=== PATIENT | male | born 1970 | race Hispanic/Latino ===

== ENCOUNTER 2018-08-11 17:13 | Observation (INO) | payer MEDICAID ==
[2018-08-11 18:48] LABS: BASO % 0.4 % (0.0-2.0); EOS # 0.1 K/uL (0.0-0.7); EOS % 2.2 % (0.0-4.0); HEMOGLOBIN 12.3 g/dL (12.0-18.0); LYMPH # 2.3 K/uL (1.0-4.3); LYMPH % 36.1 % (20.0-40.0); MEAN CELL VOLUME 85.7 fl (80.0-94.0); MEAN CORPUSCULAR HEMOGLOBIN 28.2 pg (27.0-31.0); MEAN CORPUSCULAR HGB CONC 32.9 g/dL (33.0-37.0); MEAN PLATELET VOLUME 10.2 fl (7.2-11.7); MONO # 0.5 K/uL (0.0-0.8); NEUT # 3.4 K/uL (1.8-7.0); NEUT % 53.3 % (50.0-75.0); NRBC % 0.2 % (0.0-0.0); RBC 4.38 Mil/uL (4.40-5.90); RED CELL DISTRIBUTION WIDTH 13.5 % (11.5-14.5); WHITE BLOOD COUNT 6.4 K/uL (4.8-10.8)
--- NOTE | 2018-08-11 18:48 | RAD ---
HISTORY: cough COMPARISON: None available. TECHNIQUE: Chest PA and lateral, 2 views FINDINGS: LUNGS: No focal consolidation. Please note that chest x-ray has limited sensitivity for the detection of pulmonary masses. PLEURA: No significant pleural effusion identified. No definite pneumothorax . CARDIOVASCULAR: Heart size appears within normal limits. No atherosclerotic calcification present. OSSEOUS STRUCTURES: No acute osseous abnormality identified. VISUALIZED UPPER ABDOMEN: Unremarkable. OTHER FINDINGS: None. IMPRESSION: No focal consolidation.
[2018-08-11 18:49] LABS: PROTHROMBIN TIME 11.4 Seconds (9.8-13.1)
[2018-08-11 18:52] LABS: PARTIAL THROMBOPLASTIN TIME 29.6 Seconds (25.6-37.1)
[2018-08-11 18:58] LABS: ALB/GLOB RATIO 1.6 (1.0-2.1); ALT/SGPT 51 U/L (21-72); AST/SGOT 39 U/L (17-59); BLOOD UREA NITROGEN 17 mg/dl (9-20); CALCIUM 9.7 mg/dL (8.4-10.2); GFR NON-AFRICAN AMERICAN > 60
[2018-08-11 19:01] LABS: URINE BACTERIA RARE (<OCC); URINE BILIRUBIN NEGATIVE (NEGATIVE); URINE BLOOD NEGATIVE (NEGATIVE); URINE COLOR YELLOW (YELLOW); URINE GLUCOSE (UA) NEG (NEGATIVE); URINE LEUKOCYTE ESTERASE NEG Leu/uL (Negative); URINE PROTEIN NEGATIVE (NEGATIVE); URINE UROBILINOGEN 0.2-1.0 mg/dL (0.2-1.0)
[2018-08-11 19:02] LABS: URINE CLARITY CLEAR (Clear)
[2018-08-11 19:09] LABS: B-TYPE NATRIURETIC PEPTIDE 357 pg/ml (0-450)
[2018-08-11] MEDS ORDERED: Sodium Chloride 0.9% 100 ML ONE (19:10)
[2018-08-11] MEDS ORDERED: Iodixanol 320 MG/ML 100 ML BOTTLE IV ONE (19:10)
--- NOTE | 2018-08-11 19:59 | ED PDOC ---
HPI: Chest Pain Time Seen by Provider: 08/11/18 18:10 Chief Complaint (Nursing): Palpitations Chief Complaint (Provider): Palpitations History Per: Patient History/Exam Limitations: no limitations Onset/Duration Of Symptoms: Days (x3 months ) Additional Complaint(s): Patient is a 47 year old male with no past medical history, who presents to the emergency department complaining of weight loss and intermittent palpitations. He was diagnosed with a DVT and PE last January and was on anticoagulants. However, he stopped taking them in April because they made him shake and weak. Patient has not followed up with PMD or any other doctor. He is accompanied to ED by female friend who made him come to the ED. PMD: Siri Wick Past Medical History Reviewed: Historical Data, Nursing Documentation, Vital Signs Vital Signs: Last Vital Signs Temp 98.2 F 08/11/18 17:49 Pulse 126 H 08/11/18 18:16 Resp 16 08/11/18 17:49 BP 135/85 08/11/18 17:49 Pulse Ox 97 08/11/18 17:49 - Medical History PMH: Deep Vein Thrombosis, Pulmonary Embolism Denies: Chronic Kidney Disease - Surgical History Surgical History: Tonsillectomy - Family History Family History: States: Unknown Family Hx - Home Medications Home Medications: Ambulatory Orders Medication Instructions Recorded No Known Home Med 01/26/18 - Allergies Allergies/Adverse Reactions: Allergies Allergy/AdvReac Type Severity Reaction Status Date / Time Penicillins Allergy Verified 01/25/18 19:00 Review of Systems ROS Statement: Except As Marked, All Systems Reviewed And Found Negative Constitutional: Positive for: Weight loss Cardiovascular: Positive for: Palpitations Physical Exam - Reviewed Nursing Documentation Reviewed: Yes Vital Signs Reviewed: Yes - Physical Exam Appears: Positive for: Non-toxic, No Acute Distress (visibly thin) Skin: Positive for: Jaundice Cardiovascular/Chest: Positive for: Tachycardia (regular rate) Respiratory: Positive for: Normal Breath Sounds. Negative for: Respiratory Distress Gastrointestinal/Abdominal: Positive for: Normal Exam, Soft. Negative for: Tenderness Back: Positive for: Normal Inspection. Negative for: L CVA Tenderness, R CVA Tenderness, Vertebral Tenderness Extremity: Negative for: Calf Tenderness (on squeeze and no pain), Swelling Neurological/Psych: Positive for: Awake, Oriented - Laboratory Results Result Diagrams: 08/11/18 18:18 08/11/18 18:18 Lab Results: PT 11.4 Seconds (9.8-13.1) 08/11/18 18:18 INR 1.0 08/11/18 18:18 APTT 29.6 Seconds (25.6-37.1) 08/11/18 18:18 Troponin I < 0.0120 ng/mL (0.00-0.120) 08/11/18 18:18 NT-Pro-B Natriuret Pep 357 pg/ml (0-450) 08/11/18 18:18 Total Bilirubin 0.4 mg/dl (0.2-1.3) 08/11/18 18:18 AST 39 U/L (17-59) 08/11/18 18:18 ALT 51 U/L (21-72) 08/11/18 18:18 Alkaline Phosphatase 128 U/L (38-126) H D 08/11/18 18:18 Total Protein 6.6 G/DL (6.3-8.2) 08/11/18 18:18 Albumin 4.0 g/dL (3.5-5.0) 08/11/18 18:18 Globulin 2.6 gm/dL (2.2-3.9) 08/11/18 18:18 Albumin/Globulin Ratio 1.6 (1.0-2.1) 08/11/18 18:18 Urine Color Yellow (YELLOW) 08/11/18 18:46 Urine Clarity Clear (Clear) 08/11/18 18:46 Urine pH 6.0 (5.0-8.0) 08/11/18 18:46 Ur Specific [place] 1.018 (1.003-1.030) 08/11/18 18:46 Urine Protein Negative mg/dL (NEGATIVE) 08/11/18 18:46 Urine Glucose (UA) Neg mg/dL (NEGATIVE) 08/11/18 18:46 Urine Ketones Negative mg/dL (NEGATIVE) 08/11/18 18:46 Urine Blood Negative (NEGATIVE) 08/11/18 18:46 Urine Nitrate Negative (NEGATIVE) 08/11/18 18:46 Urine Bilirubin Negative (NEGATIVE) 08/11/18 18:46 Urine Urobilinogen 0.2-1.0 mg/dL (0.2-1.0) 08/11/18 18:46 Ur Leukocyte Esterase Neg Donny/uL (Negative) 08/11/18 18:46 Urine RBC (Auto) 1 /hpf (0-3) 08/11/18 18:46 Urine Microscopic WBC 1 /hpf (0-5) 08/11/18 18:46 Urine Bacteria Rare (<OCC) 08/11/18 18:46 - ECG O2 Sat by Pulse Oximetry: 97 (RA) Pulse Ox Interpretation: Normal Medical Decision Making Medical Decision Making: Time: 1758 A/P: Work up for unintentional weight loss with history of DVT and tachycardia, T wave inversion on EKG. Order CT chest to rule out PE. Will order IV fluids and reassess patient. Perform Cardiac work up. --Type and screen --VBG --CTA --EKG --BNP --CMP --Troponin I --EKG --CBC with differential --PTT --PT --Chest xray --Blood culture --Urinalysis Time: 1844 Chest xray FINDINGS: LUNGS: No focal consolidation. Please note that chest x-ray has limited sensitivity for the detection of pulmonary masses. PLEURA: No significant pleural effusion identified. No definite pneumothorax . CARDIOVASCULAR: Heart size appears within normal limits. No atherosclerotic calcification present. OSSEOUS STRUCTURES: No acute osseous abnormality identified. VISUALIZED UPPER ABDOMEN: Unremarkable. OTHER FINDINGS: None. IMPRESSION: No focal consolidation. Time: 1946 CT FINDINGS: PULMONARY ARTERIES No evidence of central or segmental pulmonary embolism is seen. AORTA There is no evidence for aneurysm or dissection of the thoracic aorta. LUNGS The lungs appear clear. PLEURAL SPACES No pleural effusion seen. No pneumothorax evident. HEART Normal heart size. No significant pericardial effusion. LYMPH NODES No lymphadenopathy is evident. BONES No focal osseous abnormality or acute fracture. UPPER ABDOMEN Images of the upper abdomen are unremarkable. IMPRESSION: Unremarkable pulmonary embolism protocol CTA of the chest. Time: 2253 --Patient labs show elevated thyroid levels. --Patient to be admitted to medicine. --Initiated hyperthyroid treatment now. ----- Scribe Attestation: Documented by Mahendra Marmolejo, acting as a scribe Nikolas Borja MD. Provider Scribe Attestation: All medical record entries made by the Scribe were at my direction and pers onally dictated by me. I have reviewed the chart and agree that the record accurately reflects my personal performance of the history, physical exam, medical decision making, and the department course for this patient. I have also personally directed, reviewed, and agree with the discharge instructions and disposition. [address] chest shows no abnormalities. Pt remains tachycardic after one liter of IV fluids. Sending Thyroid panel and HIV screen now. Adding on a second liter of IV fluids and pt given Nicotine patch per request. 2255 T4 of 22. Initiating treatment of Thyroid storm with Esmolol and Methimazol. Spoke with hospitalist and FP resident. PT to be admitted to Telemetry. Disposition - Clinical Impression Clinical Impression: Hyperthyroidism - Patient ED Disposition Is Patient to be Admitted: Yes - Disposition Disposition Time: 22:55 Condition: GUARDED
[2018-08-11] MEDS ORDERED: Sodium Chloride 0.9% 1,000 ML IV STA ×2 (20:49→21:57)
[2018-08-11 21:06] LABS: VENOUS BLOOD GAS BASE EXCESS 4.7 mmol/L (0.0-2.0); VENOUS BLOOD GAS PCO2 51 mmHg (40-60); VENOUS BLOOD GAS PO2 31 mm/Hg (30-55); VENOUS BLOOD PH 7.39 (7.32-7.43)
[2018-08-11 21:33] LABS: BARBITURATES, UR NEGATIVE (NEGATIVE); BENZODIAZEPINES, UR NEGATIVE (NEGATIVE); OPIATES, UR NEGATIVE (NEGATIVE); PHENCYCLIDINE, UR NEGATIVE (NEGATIVE)
[2018-08-11 22:59] LABS: T3 4.61 nmol/L (1.49-2.60)
[2018-08-11] MEDS ORDERED: Esmolol 100 mg/10ml Inj IV ONE (23:01)
--- NOTE | 2018-08-11 23:56 | CP.PCM.HP ---
History of Present Illness - History of Present Illness History of Present Illness: This is 47 y/o M with PMH of Unprovoked DVT/PE in 01/2018 (Stopped taking Eliquis after 3mts) admitted to [facility] for evaluation and treatment of hyperthyroid/Thyrotoxicosis. Patient presents to the ER c/o 6 months hx of 35 pounds of unintentional weight loss, intermittent episodes of palpitations, tachycardia, tremulousness, anxiety, frequent bowel movements, sweating and heat intolerance. Patient reports good appetite, Stopped taking his Eliquis after 3 months due to side effect/shaking. Denies any dizziness, blurred vision, skin c hanges, SOB, chest pain, abdominal pain or dysuria. PMH: Unprovoked DVT/PE in 01/2018 PSH: [place] Allg: PCN, unable to recall sideeffects Meds: Aspirin SH: Smoker almost 2 packs/day, 2-3 beers/day and social marijuana use FH: + Hypothyroid ROS: As per HPI ER Course: HR 126, 98.2F, RR 16, Spo2 97, 135/85 CBC/CMP/UA: WNL HIV negative Urine tox: + Marijuana TSH <0.02, T4 22.5, T3 4.61 EKG: tachycardia CXR: negative CT chest angio: Normal, f/u official read S/P Esmolol 20mg, 2L IVF, Methimazole 20mg STAT Present on Admission - Present on Admission Any Indicators Present on Admission: No Review of Systems - Constitutional Constitutional: Excessive Sweating, Fatigue, Increased Appetite, Weight Loss. absent: Headache, Lethargy - EENT Eyes: absent: Blurred Vision Ears: absent: Dizziness Nose/Mouth/Throat: absent: Nasal Congestion, Sinus Pressure, Mouth Pain, Sore Throat, Throat Swelling, Tongue Swelling, Neck Pain, Neck Mass - Cardiovascular Cardiovascular: Palpitations, Rapid Heart Rate. absent: Chest Pain, Dyspnea, Dyspnea on Exertion - Respiratory Respiratory: absent: Cough, Dyspnea, Hemoptysis, Wheezing - Gastrointestinal Gastrointestinal: absent: Abdominal Pain - Genitourinary Genitourinary: absent: Change in Urinary Stream - Musculoskeletal Musculoskeletal: absent: Abnormal Gait, Muscle Cramps, Muscle Weakness, Neck Pain, Numbness, Stiffness, Tingling - Integumentary Integumentary: absent: Dry Skin, Rash - Neurological Neurological: absent: Dizziness, Numbness, Focal Weakness, Loss of Vision, Sensory Deficit, Syncope, Tingling, Tremor, Vertigo, Weakness, Other Visual Disturbances - Psychiatric Psychiatric: Anxiety. absent: Depression - Endocrine Endocrine: Excessive Sweating, Fatigue, Heat Intolorance, Palpitations. absent: Polydipsia, Polyphagia, Polyuria - Hematologic/Lymphatic Hematologic: absent: Easy Bleeding Past Patient History - Past Medical History & Family History Past Medical History?: Yes - Past Social History Smoking Status: Heavy Smoker > 10 Cigarettes Daily - CARDIAC Hx Cardiac Disorders: Yes - PULMONARY Hx Pulmonary Embolism: Yes - NEUROLOGICAL Hx Neurological Disorder: No - HEENT Hx HEENT Problems: No - RENAL Hx Chronic Kidney Disease: No - ENDOCRINE/METABOLIC Hx Endocrine Disorders: Yes - HEMATOLOGICAL/ONCOLOGICAL Hx Blood Disorders: No - INTEGUMENTARY Hx Dermatological Problems: No - MUSCULOSKELETAL/RHEUMATOLOGICAL Hx Musculoskeletal Disorders: No Hx Falls: No - GASTROINTESTINAL Hx Gastrointestinal Disorders: No - GENITOURINARY/GYNECOLOGICAL Hx Genitourinary Disorders: No - PSYCHIATRIC Hx Psychophysiologic Disorder: Yes Hx Substance Use: Yes (marijuanna daily) Other/Comment: ETOH daily 4-6 beers - SURGICAL HISTORY Hx Tonsillectomy: Yes - ANESTHESIA Hx Anesthesia: Yes Hx Anesthesia Reactions: No Hx Malignant Hyperthermia: No Meds Allergies/Adverse Reactions: Allergies Allergy/AdvReac Type Severity Reaction Status Date / Time Penicillins Allergy Verified 01/25/18 19:00 Physical Exam - Constitutional Appears: No Acute Distress (pacing around) - Head Exam Head Exam: ATRAUMATIC, NORMAL INSPECTION, NORMOCEPHALIC - Eye Exam Eye Exam: EOMI, Normal appearance, PERRL Pupil Exam: NORMAL ACCOMODATION, PERRL Additional comments: No Proptosis or periorbital edema No hyperreflexia - ENT Exam ENT Exam: Mucous Membranes Moist - Neck Exam Neck exam: Positive for: Normal Inspection - Respiratory Exam Respiratory Exam: Clear to Auscultation Bilateral, NORMAL BREATHING PATTERN. absent: Rhonchi, Wheezes, Respiratory Distress - Cardiovascular Exam Cardiovascular Exam: Tachycardia, REGULAR RHYTHM, +S1, +S2 - GI/Abdominal Exam GI & Abdominal Exam: Normal Bowel Sounds, Soft. absent: Rigid, Tenderness - Extremities Exam Extremities exam: Positive for: normal capillary refill, normal inspection, pedal pulses present. Negative for: calf tenderness, tenderness Additional comments: trace b/l pedal edema - Back Exam Back exam: NORMAL INSPECTION. absent: CVA tenderness (L), CVA tenderness (R) - Neurological Exam Neurological exam: Alert, CN II-XII Intact, Normal Gait, Oriented x3, Reflexes Normal - Psychiatric Exam Psychiatric exam: Anxious - Skin Skin Exam: Dry, Intact, Normal Color, Warm Results - Vital Signs Recent Vital Signs: Last Vital Signs Temp 98.4 F 08/11/18 23:46 Pulse 115 H 08/11/18 23:46 Resp 19 08/11/18 23:46 BP 135/77 08/11/18 23:46 Pulse Ox 100 08/11/18 23:26 - Labs Result Diagrams: 08/11/18 18:18 08/11/18 18:18 Labs: Laboratory Results - last 24 hr 08/11/18 08/11/18 08/11/18 18:18 18:18 18:18 WBC 6.4 RBC 4.38 L Hgb 12.3 Hct 37.5 MCV 85.7 MCH 28.2 MCHC 32.9 L RDW 13.5 Plt Count 170 MPV 10.2 Neut % (Auto) 53.3 Lymph % (Auto) 36.1 [place] % (Auto) 8.0 Eos % (Auto) 2.2 Baso % (Auto) 0.4 Neut # (Auto) 3.4 Lymph # (Auto) 2.3 [place] # (Auto) 0.5 Eos # (Auto) 0.1 Baso # (Auto) 0.0 PT INR APTT pO2 VBG pH VBG pCO2 VBG HCO3 VBG Total CO2 VBG O2 Sat (Calc) VBG Base Excess VBG Potassium Glucose Lactate FiO2 Sodium 137 Potassium 4.1 Chloride 102 Carbon Dioxide 27 Anion Gap 12 BUN 17 Creatinine 0.4 L Est GFR ( Amer) > 60 Est GFR (Non-Af Amer) > 60 Random Glucose 110 Calcium 9.7 Total Bilirubin 0.4 AST 39 ALT 51 Alkaline Phosphatase 128 H D Troponin I < 0.0120 NT-Pro-B Natriuret Pep 357 Total Protein 6.6 Albumin 4.0 Globulin 2.6 Albumin/Globulin Ratio 1.6 Thyroxine (T4) Total T3 TSH 3rd Generation Venous Blood Potassium Urine Color Urine Clarity Urine pH Ur Specific [place] Urine Protein Urine Glucose (UA) Urine Ketones Urine Blood Urine Nitrate Urine Bilirubin Urine Urobilinogen Ur Leukocyte Esterase Urine RBC (Auto) Urine Microscopic WBC Urine Bacteria Urine Opiates Screen Urine Methadone Screen Ur Barbiturates Screen Ur Phencyclidine Scrn Ur Amphetamines Screen U Benzodiazepines Scrn U Oth Cocaine Metabols U Cannabinoids Screen HIV-1 Ab Rapid Screen Blood Type O POSITIVE Antibody Screen Negative BBK History Checked No verified bt 08/11/18 08/11/18 08/11/18 18:18 18:46 20:50 WBC RBC Hgb Hct MCV MCH MCHC RDW Plt Count MPV Neut % (Auto) Lymph % (Auto) [place] % (Auto) Eos % (Auto) Baso % (Auto) Neut # (Auto) Lymph # (Auto) [place] # (Auto) Eos # (Auto) Baso # (Auto) PT 11.4 INR 1.0 APTT 29.6 pO2 31 VBG pH 7.39 VBG pCO2 51 VBG HCO3 27.5 VBG Total CO2 32.5 H VBG O2 Sat (Calc) 61.6 VBG Base Excess 4.7 H VBG Potassium 4.1 Glucose 101 Lactate 2.0 FiO2 21.0 Sodium 138.0 Potassium Chloride 103.0 Carbon Dioxide Anion Gap BUN Creatinine Est GFR ( Amer) Est GFR (Non-Af Amer) Random Glucose Calcium Total Bilirubin AST ALT Alkaline Phosphatase Troponin I NT-Pro-B Natriuret Pep Total Protein Albumin Globulin Albumin/Globulin Ratio Thyroxine (T4) Total T3 TSH 3rd Generation Venous Blood Potassium 4.1 Urine Color Yellow Urine Clarity Clear Urine pH 6.0 Ur Specific [place] 1.018 Urine Protein Negative Urine Glucose (UA) Neg Urine Ketones Negative Urine Blood Negative Urine Nitrate Negative Urine Bilirubin Negative Urine Urobilinogen 0.2-1.0 Ur Leukocyte Esterase Neg Urine RBC (Auto) 1 Urine Microscopic WBC 1 Urine Bacteria Rare Urine Opiates Screen Urine Methadone Screen Ur Barbiturates Screen Ur Phencyclidine Scrn Ur Amphetamines Screen U Benzodiazepines Scrn U Oth Cocaine Metabols U Cannabinoids Screen HIV-1 Ab Rapid Screen Blood Type Antibody Screen BBK History Checked 08/11/18 08/11/18 08/11/18 21:01 22:12 22:12 WBC RBC Hgb Hct MCV MCH MCHC RDW Plt Count MPV Neut % (Auto) Lymph % (Auto) [place] % (Auto) Eos % (Auto) Baso % (Auto) Neut # (Auto) Lymph # (Auto) [place] # (Auto) Eos # (Auto) Baso # (Auto) PT INR APTT pO2 VBG pH VBG pCO2 VBG HCO3 VBG Total CO2 VBG O2 Sat (Calc) VBG Base Excess VBG Potassium Glucose Lactate FiO2 Sodium Potassium Chloride Carbon Dioxide Anion Gap BUN Creatinine Est GFR ( Amer) Est GFR (Non-Af Amer) Random Glucose Calcium Total Bilirubin AST ALT Alkaline Phosphatase Troponin I NT-Pro-B Natriuret Pep Total Protein Albumin Globulin Albumin/Globulin Ratio Thyroxine (T4) 22.5 H Total T3 4.61 H TSH 3rd Generation < 0.02 L Venous Blood Potassium Urine Color Urine Clarity Urine pH Ur Specific [place] Urine Protein Urine Glucose (UA) Urine Ketones Urine Blood Urine Nitrate Urine Bilirubin Urine Urobilinogen Ur Leukocyte Esterase Urine RBC (Auto) Urine Microscopic WBC Urine Bacteria Urine Opiates Screen Negative Urine Methadone Screen Negative Ur Barbiturates Screen Negative Ur Phencyclidine Scrn Negative Ur Amphetamines Screen Negative U Benzodiazepines Scrn Negative U Oth Cocaine Metabols Negative U Cannabinoids Screen Positive H HIV-1 Ab Rapid Screen Non reactive Blood Type Antibody Screen BBK History Checked Assessment & Plan - Assessment and Plan (Free Text) Assessment: A/P: 47 y/o M with PMH of Unprovoked DVT/PE in 01/2018 (Stopped taking Eliquis after 3mts) admitted to [facility] for evaluation and treatment of hyperthyroid/Thyrotoxicosis. Hyperthyroid/Thyrotoxicosis - TSH <0.02, T4 22.5, T3 4.61 - Consult Endocrine, Dr. Sharma, f/u recommendations - START Atenolol 50mg PO daily, titrate up as needed - START Methimazole 20mg PO TID (as per Dr. Sharma) - F/u Tyroid U/S - F/u Thyroid Abs workup Unprovoked DVT/PE in 01/2018 - Patient stopped taking his Eliquis after 3 months b/c it made him shaky/lose weight - Consult HemOnc, Dr. Vivar to evaluate possible need of anticoags, f/u recommendations - C/w Lovenox 40mg SC daily for now Daily Tobacco Use and Alcohol Use - Nicoderm Patches daily - [facility] protocol - Monitor for any withdrawal symptoms DVT PPX - Lovenox 40mg SC daily Case discussed and Patient seen with Dr. Escobar
[2018-08-11] MEDS ORDERED: Enoxaparin 40 mg Syringe SC STA (23:58)
[2018-08-12] MEDS: Lactated Ringer's 1,000 ML IV SCH ×2 (01:08→11:41)
[2018-08-12 05:03] VITALS: RESP 18
--- NOTE | 2018-08-12 05:17 | CON ---
DATE: 08/12/2018 LOCATION: Room 416. HISTORY OF PRESENT ILLNESS: This is a 47-year-old male with recent onset of palpitations and precordial chest pain with generalized body weakness, was seen in the emergency room and was found to have also sinus tachycardia, evaluated to have new onset of hyperthyroidism and is being referred now for endocrine evaluation and management. PAST MEDICAL HISTORY: History of deep vein thrombosis and pulmonary embolism in 01/22/2018 and was previously on oral anticoagulation therapy which eventually discontinued and was lost for medical followup. FAMILY HISTORY: Positive for hypertension and heart disease. No known thyroid endocrinopathy. SOCIAL HISTORY: The patient admits to polysubstance use with nicotine dependence and smokes over a pack a day for many years, now with chronic alcoholism and also daily marijuana use. REVIEW OF SYSTEMS: Admits to generalized body weakness with progressive bouts of dizziness and lightheadedness and bifrontal headaches. Also admits to easy fatigability and tiredness with marked insomnia and disrupted sleep patterns. Also admits to instability of his moods with marked irritability and agitation, worse in the last few weeks prior to admission. Admits also to recent precordial chest pain with intermittent bouts of palpitations and shortness of breath, especially on exertion. His oral intake has been variable with nausea, dyspepsia, and hyperdefecation. Also admits to recent weight loss of over 10 pounds or more so. PHYSICAL EXAMINATION: GENERAL: An male in no apparent distress. VITAL SIGNS: Blood pressure of 140/90, pulse of 130 beats per minute and regular, temperature 98, respirations 20. Height is 5 feet 2 inches. Weight is 104 pounds. HEENT: Head normocephalic. Eyes anicteric with pink conjunctivae. Funduscopy not possible at this time. Ears, nose, and throat otherwise normal. NECK: Supple. Thyroid gland shows nodular thyromegaly which is firm and nontender with positive thyroid bruits. HEART: Chest shows hyperdynamic precordium. S1, S2 rapid and regular. LUNGS: Clear to auscultation. ABDOMEN: Flat, soft with positive bowel sounds. EXTREMITIES: No peripheral edema. Pulses are +2 bilaterally. LABORATORY DATA: His chemistry showed T4 or thyroxine level of 22.5 with a TSH of less than 0.02 and a total T3 of 4.61. BUN of 17, sodium 137, potassium 4.1, chloride 102, CO2 of 27, glucose 110, and creatinine 0.4. ASSESSMENT: This is a 47-year-old male with overt thyrotoxicosis, presenting here with marked hyperthyroidism noted both historically, clinically and biochemically, most likely related to underlying Graves disease with a concomitant diffuse toxic goiter. He also has overt constitutional and hyperadrenergic manifestations of marked hyperthyroidism, as mentioned. PLAN OF MANAGEMENT: We will initiate maximum thyroid pharmacotherapy at this time with Tapazole to be given at 20 mg p.o. t.i.d. as ordered. We will obtain a comprehensive thyroid hormone profile with a total and free T4 and TSH as ordered. We will also add thyroid stimulating immunoglobulin and thyroid peroxidase antibody to confirm and/or indicate the presence of underlying thyroid autoimmunity. We will obtain a thyroid ultrasound to fully delineate his thyroid lobe dimensions. We will hold off a thyroid scan and uptake, as this will require the discontinuation of his Tapazole therapy, which at this point is imperative and mandatory management to control his hyperadrenergic manifestations. We will also discuss the therapeutic options of medical therapy and radioactive iodine therapy at this time. We will follow and advise accordingly. Sofia Sharma MD
[2018-08-12 06:24] LABS: ALB/GLOB RATIO 1.4 (1.0-2.1); ALBUMIN 3.1 g/dL (3.5-5.0); ALT/SGPT 57 U/L (21-72); AST/SGOT 54 U/L (17-59); BLOOD UREA NITROGEN 13 mg/dl (9-20); CALCIUM 9.7 mg/dL (8.4-10.2); GFR NON-AFRICAN AMERICAN > 60
[2018-08-12] MEDS ORDERED: Enoxaparin 40 mg Syringe SC SCH (09:00)
--- NOTE | 2018-08-12 09:09 | CT ---
Date of service: 08/11/2018 PROCEDURE: CT Chest with contrast (Pulmonary Angiogram) HISTORY: tachycardia, previous PE COMPARISON: None available. TECHNIQUE: Axial computed tomography images were obtained of the chest in the pulmonary arterial phase of enhancement. Coronal and sagittal reformatted images were created and reviewed. Intravenous contrast dose: 65 mL of Visipaque 320 Radiation dose: Total exam DLP = 224.46 mGy-cm. This CT exam was performed using one or more of the following dose reduction techniques: Automated exposure control, adjustment of the mA and/or kV according to patient size, and/or use of iterative reconstruction technique. FINDINGS: PULMONARY ARTERIES: No central or proximal segmental emboli appreciated. Smaller peripheral subsegmental pulmonary emboli not excluded. AORTA: No acute findings. No thoracic aortic aneurysm. No aortic atherosclerotic calcification or mural plaque present. LUNGS: 2 mm peripheral right upper lobe pleural-based nodule noted. No nodules 6 or 8 mm larger in size noted.. No mass or pulmonary consolidation. PLEURAL SPACES: Unremarkable. No effusion or pneumothorax. HEART: Unremarkable. No cardiomegaly. No significant pericardial effusion. LYMPH NODES: No lymphadenopathy. BONES, CHEST WALL: Unremarkable. No fracture or destructive lesion OTHER FINDINGS: Unremarkable. IMPRESSION: No central or segmental pulmonary emboli noted. This was concordant with the preliminary [facility] report. 2 mm peripheral right upper lobe pleural-based nodule noted. No nodules 6 or 8 mm larger in size noted.. No mass or pulmonary consolidation. This was not mention with the preliminary [facility] report.
--- NOTE | 2018-08-12 10:04 | CARD ---
APPROVED REPORT Date of service: 08/11/2018 EKG Measurement Heart [id number] <Conclusion> Sinus tachycardia ST elevation, consider early repolarization, pericarditis, or injury Abnormal ECG
--- NOTE | 2018-08-12 11:16 | CP.PCM.PN ---
Subjective - Date & Time of Evaluation Date of Evaluation: 08/12/18 Time of Evaluation: 11:16 - Subjective Subjective: Patient seen and examined bedside. No new complaints, denies palpitations, headache, nausea, vomiting, edema, diarrhea and constipation. Objective - Vital Signs/Intake and Output Vital Signs (last 24 hours): Temp Pulse Resp BP Pulse Ox 98.4 F 96 H 18 145/69 97 08/12/18 09:00 08/12/18 09:00 08/12/18 09:00 08/12/18 09:00 08/12/18 09:00 - Medications Medications: Current Medications Acetaminophen (Tylenol 325mg Tab) 650 mg PO Q6 PRN PRN Reason: Pain, moderate (4-7) Acetaminophen (Tylenol 325mg Tab) 650 mg PO Q6 PRN PRN Reason: Fever >100.4 F Atenolol (Tenormin) 50 mg PO DAILY [facility] Last Admin: 08/12/18 08:30 Dose: 50 mg Enoxaparin Sodium (Lovenox) 40 mg SC DAILY [facility]; Protocol Last Admin: 08/12/18 08:30 Dose: 40 mg Lactated Ringer's (Lactated Ringer's) 1,000 mls @ 100 mls/hr IV .Q10H [facility] Last Admin: 08/12/18 01:08 Dose: 100 mls/hr Methimazole (Tapazole) 20 mg PO TID [facility] Last Admin: 08/12/18 08:30 Dose: 20 mg Nicotine (Nicoderm Cq) 1 patch TD DAILY [facility] Last Admin: 08/12/18 08:30 Dose: 1 patch Ondansetron HCl (Zofran Inj) 4 mg IVP Q6 PRN PRN Reason: Nausea/Vomiting - Labs Labs: 08/11/18 18:18 08/12/18 05:25 PT 11.4 Seconds (9.8-13.1) 08/11/18 18:18 INR 1.0 08/11/18 18:18 APTT 29.6 Seconds (25.6-37.1) 08/11/18 18:18 - Constitutional Appears: No Acute Distress, Cachectic - ENT Exam ENT Exam: Mucous Membranes Moist - Respiratory Exam Respiratory Exam: NORMAL BREATHING PATTERN - Cardiovascular Exam Cardiovascular Exam: Tachycardia (mid 90's) - GI/Abdominal Exam GI & Abdominal Exam: Soft. absent: Tenderness - Extremities Exam Extremities Exam: Normal Inspection - Neurological Exam Neurological Exam: Alert, Awake, Normal Gait, Oriented x3 - Psychiatric Exam Psychiatric exam: Normal Affect, Normal Mood - Skin Skin Exam: Dry, Intact, Normal Color, Warm Assessment and Plan - Assessment and Plan (Free Text) Assessment: 47 y/o M with PMH of Unprovoked DVT/PE in 01/2018 (Stopped taking Eliquis after 3mts) admitted to [facility] for evaluation and treatment of hyperthyroid/Thyrotoxicosis. Plan: Hyperthyroid/Thyrotoxicosis - TSH <0.02, T4 22.5, T3 4.61 - Consult Endocrine, Dr. Sharma, rec one more night for high dose of Methimazole (TID), d/c on BID - START Atenolol 50mg PO daily, titrate up as needed - START Methimazole 20mg PO TID (as per Dr. Sharma) - F/u Tyroid U/S - F/u Thyroid Abs workup Unprovoked DVT/PE in 01/2018 - Patient stopped taking his Eliquis after 3 months b/c it made him shaky/lose weight - Consult HemOnc, Dr. Vivar to evaluate possible need of anticoags, f/u recommendations - C/w Lovenox 40mg SC daily for now - D/C with ASA 81 mg Daily Tobacco Use and Alcohol Use - Nicoderm Patches daily - [facility] protocol - Monitor for any withdrawal symptoms DVT PPX - Lovenox 40mg SC daily
--- NOTE | 2018-08-12 11:57 | CP.PCM.DIS ---
<Kenisha Miller - Last Filed: 08/12/18 11:58> Provider - Provider Date of Admission: 08/11/18 22:55 Attending physician: Miriam Escobar MD Consults: 08/11/18 23:48 Endocrinology Consult Routine Comment: Consulting Provider: Sofia Sharma Consulting Physician: Sofia Sharma Reason for Consult: Hyperthyroid/thyrotoxicosis Hematology Oncology Consult Routine Comment: Consulting Provider: Baljit Vivar Consulting Physician: Baljit Vivar Reason for Consult: Hx of DVT/PE 7mts ago, not on anticoag, newly dig hyperthyroid Time Spent in preparation of Discharge (in minutes): 20 Diagnosis - Discharge Diagnosis (1) Hyperthyroidism Status: Acute Hospital Course - Lab Results Lab Results: Most Recent Lab Values WBC 6.4 K/uL (4.8-10.8) 08/11/18 18:18 RBC 4.38 Mil/uL (4.40-5.90) L 08/11/18 18:18 Hgb 12.3 g/dL (12.0-18.0) 08/11/18 18:18 Hct 37.5 % (35.0-51.0) 08/11/18 18:18 MCV 85.7 fl (80.0-94.0) 08/11/18 18:18 MCH 28.2 pg (27.0-31.0) 08/11/18 18:18 MCHC 32.9 g/dL (33.0-37.0) L 08/11/18 18:18 RDW 13.5 % (11.5-14.5) 08/11/18 18:18 Plt Count 170 K/uL (130-400) 08/11/18 18:18 MPV 10.2 fl (7.2-11.7) 08/11/18 18:18 Neut % (Auto) 53.3 % (50.0-75.0) 08/11/18 18:18 Lymph % (Auto) 36.1 % (20.0-40.0) 08/11/18 18:18 Barnes % (Auto) 8.0 % (0.0-10.0) 08/11/18 18:18 Eos % (Auto) 2.2 % (0.0-4.0) 08/11/18 18:18 Baso % (Auto) 0.4 % (0.0-2.0) 08/11/18 18:18 Neut # (Auto) 3.4 K/uL (1.8-7.0) 08/11/18 18:18 Lymph # (Auto) 2.3 K/uL (1.0-4.3) 08/11/18 18:18 Barnes # (Auto) 0.5 K/uL (0.0-0.8) 08/11/18 18:18 Eos # (Auto) 0.1 K/uL (0.0-0.7) 08/11/18 18:18 Baso # (Auto) 0.0 K/uL (0.0-0.2) 08/11/18 18:18 PT 11.4 Seconds (9.8-13.1) 08/11/18 18:18 INR 1.0 08/11/18 18:18 APTT 29.6 Seconds (25.6-37.1) 08/11/18 18:18 pO2 31 mm/Hg (30-55) 08/11/18 20:50 VBG pH 7.39 (7.32-7.43) 08/11/18 20:50 VBG pCO2 51 mmHg (40-60) 08/11/18 20:50 VBG HCO3 27.5 mmol/L 08/11/18 20:50 VBG Total CO2 32.5 mmol/L (22-28) H 08/11/18 20:50 VBG O2 Sat (Calc) 61.6 % (40-65) 08/11/18 20:50 VBG Base Excess 4.7 mmol/L (0.0-2.0) H 08/11/18 20:50 VBG Potassium 4.1 mmol/L (3.6-5.2) 08/11/18 20:50 Sodium 138.0 mmol/L (132-148) 08/11/18 20:50 Chloride 103.0 mmol/L (98-107) 08/11/18 20:50 Glucose 101 mg/dL (75-110) 08/11/18 20:50 Lactate 2.0 mmol/L (0.7-2.1) 08/11/18 20:50 FiO2 21.0 % 08/11/18 20:50 Sodium 138 mmol/l (132-148) 08/12/18 05:25 Potassium 3.8 MMOL/L (3.6-5.0) 08/12/18 05:25 Chloride 107 mmol/L (98-107) 08/12/18 05:25 Carbon Dioxide 26 mmol/L (22-30) 08/12/18 05:25 Anion Gap 9 (10-20) L 08/12/18 05:25 BUN 13 mg/dl (9-20) 08/12/18 05:25 Creatinine 0.4 mg/dl (0.8-1.5) L 08/12/18 05:25 Est GFR ( Amer) > 60 08/12/18 05:25 Est GFR (Non-Af Amer) > 60 08/12/18 05:25 Random Glucose 89 mg/dL (75-110) 08/12/18 05:25 Calcium 9.7 mg/dL (8.4-10.2) 08/12/18 05:25 Total Bilirubin 0.5 mg/dl (0.2-1.3) 08/12/18 05:25 AST 54 U/L (17-59) 08/12/18 05:25 ALT 57 U/L (21-72) 08/12/18 05:25 Alkaline Phosphatase 108 U/L (38-126) 08/12/18 05:25 Troponin I < 0.0120 ng/mL (0.00-0.120) 08/11/18 18:18 NT-Pro-B Natriuret Pep 357 pg/ml (0-450) 08/11/18 18:18 Total Protein 5.4 G/DL (6.3-8.2) L 08/12/18 05:25 Albumin 3.1 g/dL (3.5-5.0) L D 08/12/18 05:25 Globulin 2.3 gm/dL (2.2-3.9) 08/12/18 05:25 Albumin/Globulin Ratio 1.4 (1.0-2.1) 08/12/18 05:25 Free T4 4.28 ng/dL (0.78-2.19) H 08/12/18 05:20 Thyroxine (T4) 15.9 ug/dl (5.5-11.0) H 08/12/18 05:25 Total T3 4.61 nmol/L (1.49-2.60) H 08/11/18 22:12 TSH 3rd Generation < 0.02 mIU/ML (0.46-4.68) L 08/12/18 05:25 Venous Blood Potassium 4.1 mmol/L (3.6-5.2) 08/11/18 20:50 Urine Color Yellow (YELLOW) 08/11/18 18:46 Urine Clarity Clear (Clear) 08/11/18 18:46 Urine pH 6.0 (5.0-8.0) 08/11/18 18:46 Ur Specific [place] 1.018 (1.003-1.030) 08/11/18 18:46 Urine Protein Negative mg/dL (NEGATIVE) 08/11/18 18:46 Urine Glucose (UA) Neg mg/dL (NEGATIVE) 08/11/18 18:46 Urine Ketones Negative mg/dL (NEGATIVE) 08/11/18 18:46 Urine Blood Negative (NEGATIVE) 08/11/18 18:46 Urine Nitrate Negative (NEGATIVE) 08/11/18 18:46 Urine Bilirubin Negative (NEGATIVE) 08/11/18 18:46 Urine Urobilinogen 0.2-1.0 mg/dL (0.2-1.0) 08/11/18 18:46 Ur Leukocyte Esterase Neg Donny/uL (Negative) 08/11/18 18:46 Urine RBC (Auto) 1 /hpf (0-3) 08/11/18 18:46 Urine Microscopic WBC 1 /hpf (0-5) 08/11/18 18:46 Urine Bacteria Rare (<OCC) 08/11/18 18:46 Urine Opiates Screen Negative (NEGATIVE) 08/11/18 21:01 Urine Methadone Screen Negative (NEGATIVE) 08/11/18 21:01 Ur Barbiturates Screen Negative (NEGATIVE) 08/11/18 21:01 Ur Phencyclidine Scrn Negative (NEGATIVE) 08/11/18 21:01 Ur Amphetamines Screen Negative (NEGATIVE) 08/11/18 21:01 U Benzodiazepines Scrn Negative (NEGATIVE) 08/11/18 21:01 U Oth Cocaine Metabols Negative (NEGATIVE) 08/11/18 21:01 U Cannabinoids Screen Positive (NEGATIVE) H 08/11/18 21:01 HIV-1 Ab Rapid Screen Non reactive (NON REAC) 08/11/18 22:12 Blood Type O POSITIVE 08/11/18 18:18 Blood Type Confirm O POSITIVE 08/12/18 09:45 Antibody Screen Negative 08/11/18 18:18 BBK History Checked No verified bt 08/11/18 18:18 - Hospital Course Hospital Course: 47 y/o M with PMH of Unprovoked DVT/PE in 01/2018 (Stopped taking Eliquis after 3mts) admitted to [facility] for evaluation and treatment of hyperthyroid/Thyrotoxicosis. Consult Endocrine, Dr. Sharma, rec Methimazole (TID) and Atenolol 50mg PO daily throughout admission. Pt HR decreased back down to 90's and asymptomatic of thyrotoxicosis symptoms. Thyroid Ab labs drawn, follow- up outpatient. As per verbal consultation with Dr Vivar, pt can be discharged on ASA 81 mg daily d/t unprovoked DVT/PE in Jan 2018. Recommend f/u with PMD within [address] Sharma within 2 weeks. Discharge Exam - Head Exam Head Exam: ATRAUMATIC, NORMAL INSPECTION, NORMOCEPHALIC - Eye Exam Eye Exam: Normal appearance - Cardiovascular Exam Cardiovascular Exam: Tachycardia (mid 90's) - GI/Abdominal Exam GI & Abdominal Exam: Normal Bowel Sounds, Unremarkable - Extremities Exam Extremities exam: normal inspection - Neurological Exam Neurological exam: Alert, Normal Gait, Oriented x3 - Psychiatric Exam Psychiatric exam: Normal Affect, Normal Mood - Skin Skin Exam: Dry, Intact, Normal Color, Warm Discharge Plan - Discharge Medications Prescriptions: methIMAzole [Tapazole] 20 mg PO BID #30 tab Nicotine 21 mg/24 hr [Nicoderm Cq] 1 patch TD DAILY #30 patch Propranolol HCl [Inderal LA] 60 mg PO DAILY #15 cap.sa.24h - Follow Up Plan Condition: GUARDED Disposition: HOME/ ROUTINE Instructions: Hyperthyroidism (Overactive Thyroid) Additional Instructions: Follow up with PMD within [address] Sharma within 2 weeks. Referrals: Sofia Sharma MD [Medical Doctor] - <Francie Oviedo - Last Filed: 08/12/18 14:58> Provider - Provider Date of Admission: 08/11/18 22:55 Attending physician: Miriam Escobar MD Consults: 08/11/18 23:48 Endocrinology Consult Routine Comment: Consulting Provider: Sofia Sharma Consulting Physician: Sofia Sharma Reason for Consult: Hyperthyroid/thyrotoxicosis Hospital Course - Lab Results Lab Results: Most Recent Lab Values WBC 6.4 K/uL (4.8-10.8) 08/11/18 18:18 RBC 4.38 Mil/uL (4.40-5.90) L 08/11/18 18:18 Hgb 12.3 g/dL (12.0-18.0) 08/11/18 18:18 Hct 37.5 % (35.0-51.0) 08/11/18 18:18 MCV 85.7 fl (80.0-94.0) 08/11/18 18:18 MCH 28.2 pg (27.0-31.0) 08/11/18 18:18 MCHC 32.9 g/dL (33.0-37.0) L 08/11/18 18:18 RDW 13.5 % (11.5-14.5) 08/11/18 18:18 Plt Count 170 K/uL (130-400) 08/11/18 18:18 MPV 10.2 fl (7.2-11.7) 08/11/18 18:18 Neut % (Auto) 53.3 % (50.0-75.0) 08/11/18 18:18 Lymph % (Auto) 36.1 % (20.0-40.0) 08/11/18 18:18 Barnes % (Auto) 8.0 % (0.0-10.0) 08/11/18 18:18 Eos % (Auto) 2.2 % (0.0-4.0) 08/11/18 18:18 Baso % (Auto) 0.4 % (0.0-2.0) 08/11/18 18:18 Neut # (Auto) 3.4 K/uL (1.8-7.0) 08/11/18 18:18 Lymph # (Auto) 2.3 K/uL (1.0-4.3) 08/11/18 18:18 Barnes # (Auto) 0.5 K/uL (0.0-0.8) 08/11/18 18:18 Eos # (Auto) 0.1 K/uL (0.0-0.7) 08/11/18 18:18 Baso # (Auto) 0.0 K/uL (0.0-0.2) 08/11/18 18:18 PT 11.4 Seconds (9.8-13.1) 08/11/18 18:18 INR 1.0 08/11/18 18:18 APTT 29.6 Seconds (25.6-37.1) 08/11/18 18:18 pO2 31 mm/Hg (30-55) 08/11/18 20:50 VBG pH 7.39 (7.32-7.43) 08/11/18 20:50 VBG pCO2 51 mmHg (40-60) 08/11/18 20:50 VBG HCO3 27.5 mmol/L 08/11/18 20:50 VBG Total CO2 32.5 mmol/L (22-28) H 08/11/18 20:50 VBG O2 Sat (Calc) 61.6 % (40-65) 08/11/18 20:50 VBG Base Excess 4.7 mmol/L (0.0-2.0) H 08/11/18 20:50 VBG Potassium 4.1 mmol/L (3.6-5.2) 08/11/18 20:50 Sodium 138.0 mmol/L (132-148) 08/11/18 20:50 Chloride 103.0 mmol/L (98-107) 08/11/18 20:50 Glucose 101 mg/dL (75-110) 08/11/18 20:50 Lactate 2.0 mmol/L (0.7-2.1) 08/11/18 20:50 FiO2 21.0 % 08/11/18 20:50 Sodium 138 mmol/l (132-148) 08/12/18 05:25 Potassium 3.8 MMOL/L (3.6-5.0) 08/12/18 05:25 Chloride 107 mmol/L (98-107) 08/12/18 05:25 Carbon Dioxide 26 mmol/L (22-30) 08/12/18 05:25 Anion Gap 9 (10-20) L 08/12/18 05:25 BUN 13 mg/dl (9-20) 08/12/18 05:25 Creatinine 0.4 mg/dl (0.8-1.5) L 08/12/18 05:25 Est GFR ( Amer) > 60 08/12/18 05:25 Est GFR (Non-Af Amer) > 60 08/12/18 05:25 Random Glucose 89 mg/dL (75-110) 08/12/18 05:25 Calcium 9.7 mg/dL (8.4-10.2) 08/12/18 05:25 Total Bilirubin 0.5 mg/dl (0.2-1.3) 08/12/18 05:25 AST 54 U/L (17-59) 08/12/18 05:25 ALT 57 U/L (21-72) 08/12/18 05:25 Alkaline Phosphatase 108 U/L (38-126) 08/12/18 05:25 Troponin I < 0.0120 ng/mL (0.00-0.120) 08/11/18 18:18 NT-Pro-B Natriuret Pep 357 pg/ml (0-450) 08/11/18 18:18 Total Protein 5.4 G/DL (6.3-8.2) L 08/12/18 05:25 Albumin 3.1 g/dL (3.5-5.0) L D 08/12/18 05:25 Globulin 2.3 gm/dL (2.2-3.9) 08/12/18 05:25 Albumin/Globulin Ratio 1.4 (1.0-2.1) 08/12/18 05:25 Free T4 4.28 ng/dL (0.78-2.19) H 08/12/18 05:20 Thyroxine (T4) 15.9 ug/dl (5.5-11.0) H 08/12/18 05:25 Total T3 4.61 nmol/L (1.49-2.60) H 08/11/18 22:12 TSH 3rd Generation < 0.02 mIU/ML (0.46-4.68) L 08/12/18 05:25 Cortisol AM Sample 1.3 ug/dL (4.46-22.7) L 08/12/18 05:20 Venous Blood Potassium 4.1 mmol/L (3.6-5.2) 08/11/18 20:50 Urine Color Yellow (YELLOW) 08/11/18 18:46 Urine Clarity Clear (Clear) 08/11/18 18:46 Urine pH 6.0 (5.0-8.0) 08/11/18 18:46 Ur Specific [place] 1.018 (1.003-1.030) 08/11/18 18:46 Urine Protein Negative mg/dL (NEGATIVE) 08/11/18 18:46 Urine Glucose (UA) Neg mg/dL (NEGATIVE) 08/11/18 18:46 Urine Ketones Negative mg/dL (NEGATIVE) 08/11/18 18:46 Urine Blood Negative (NEGATIVE) 08/11/18 18:46 Urine Nitrate Negative (NEGATIVE) 08/11/18 18:46 Urine Bilirubin Negative (NEGATIVE) 08/11/18 18:46 Urine Urobilinogen 0.2-1.0 mg/dL (0.2-1.0) 08/11/18 18:46 Ur Leukocyte Esterase Neg Donny/uL (Negative) 08/11/18 18:46 Urine RBC (Auto) 1 /hpf (0-3) 08/11/18 18:46 Urine Microscopic WBC 1 /hpf (0-5) 08/11/18 18:46 Urine Bacteria Rare (<OCC) 08/11/18 18:46 Urine Opiates Screen Negative (NEGATIVE) 08/11/18 21:01 Urine Methadone Screen Negative (NEGATIVE) 08/11/18 21:01 Ur Barbiturates Screen Negative (NEGATIVE) 08/11/18 21:01 Ur Phencyclidine Scrn Negative (NEGATIVE) 08/11/18 21:01 Ur Amphetamines Screen Negative (NEGATIVE) 08/11/18 21:01 U Benzodiazepines Scrn Negative (NEGATIVE) 08/11/18 21:01 U Oth Cocaine Metabols Negative (NEGATIVE) 08/11/18 21:01 U Cannabinoids Screen Positive (NEGATIVE) H 08/11/18 21:01 HIV-1 Ab Rapid Screen Non reactive (NON REAC) 08/11/18 22:12 Blood Type O POSITIVE 08/11/18 18:18 Blood Type Confirm O POSITIVE 08/12/18 09:45 Antibody Screen Negative 08/11/18 18:18 BBK History Checked No verified bt 08/11/18 18:18 Attending/Attestation - Attestation I have personally seen and examined this patient.: Yes I have fully participated in the care of the patient.: Yes I have reviewed all pertinent clinical information, including history, physical exam and plan: Yes Notes (Text): Hyperthyroidism/Graves Disease Sinus Tachycardia due to Hyperthyroidism History of LE DVT - received 20 mg Methimazole while in the hospital and Atenolol - HR now controlled - Endo consulted -will d/c pt home on Methimazole 20 mg bid and Propranolol as rec by Endo - CTA of chest : neg for PE, no signs of DVT - advised pt to take PO Aspirin
--- NOTE | 2018-08-12 14:05 | US ---
Date of service: 08/12/2018 HISTORY: thyrotoxicosis TECHNIQUE: Grayscale imaging was performed. COMPARISON: FINDINGS: RIGHT LOBE: Measures 6.1 x 2.0 x 2.9 cm. There is diffuse heterogeneous echotexture with increased vascularity. Nodules: There is a 3 mm cyst in the upper pole. LEFT LOBE: Measures 6.3 x 1.6 x 2.3 cm. There is diffuse heterogeneous echotexture with increased vascularity. Nodules: None ISTHMUS: Measures 0.5 cm. There is diffuse heterogeneous echotexture with increased vascularity. Nodules: None OTHER FINDINGS: None . IMPRESSION: Enlarged heterogeneous hypervascular thyroid gland with a solitary 3 mm cyst in the right upper pole.
[2018-08-12 16:33] VITALS: BP 122/75; PULSE 95; TEMP 98; O2SAT 96
--- NOTE | 2018-08-12 21:21 | PN ---
DATE: 08/12/2018 ENDOCRINOLOGY FOLLOWUP NOTE LOCATION: Room 416. SUBJECTIVE: This is a 47-year-old male with recent evaluation of marked and overt thyrotoxicosis, presenting here with hyperadrenergic manifestations and episodic palpitations and precordial chest pain and is now being followed closely for metabolic management. He also had sinus tachycardia on admission and has improved accordingly overnight, and the latest heart rate is 90 beats per minute as noted. LABORATORY DATA: The repeat thyroid studies showed a total T4 or thyroxine level of 15.9 with a TSH of less than 0.02 and a free T4 of 4.28. His chemistries showed a BUN of 13, sodium 138, potassium 3.8, chloride 107, CO2 of 26, glucose 89 and creatinine 0.4. 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 PLAN OF MANAGEMENT: We would continue the high dose medical therapy with Tapazole given as 20 mg p.o. t.i.d. after meals as ordered. We will recommend a lower dose regimen upon discharge with Tapazole given as 20 mg b.i.d. as ordered. We will also continue the beta-adrenergic blockade with a long-acting propranolol given as 60 mg once daily as ordered. We will obtain serial chemistries and supplement accordingly as needed. We will follow. Sofia Sharma MD
== END 2018-08-12 16:30 | disposition home or self-care (01) ==
LOC: H.ER 17:13 → H.ERHOLD 22:55 → INTOOBSV 22:55 → H.TEL 08-12 00:11
PROVIDERS: ADMIT Internal Medicine; ATTEND Internal Medicine
DX: E05.01 Thyrotoxicosis with diffuse goiter with thyrotoxic crisis or storm (principal); R00.0 Tachycardia, unspecified; F10.20 Alcohol dependence, uncomplicated; F12.90 Cannabis use, unspecified, uncomplicated; F17.210 Nicotine dependence, cigarettes, uncomplicated; Z79.01 Long term (current) use of anticoagulants; Z86.711 Personal history of pulmonary embolism; Z86.718 Personal history of other venous thrombosis and embolism; Z88.0 Allergy status to penicillin
CPT/HCPCS: 36415; 71046; 71275; 76536; 80053; 80324; 80345; 80346; 80349; 80353; 80358; 80361; 81003; 82533; 82803; 83880; 83992; 84436; 84439; 84443; 84445; 84480; 84484; 85025; 85610; 85730; 86376; 86800; 86850; 86900; 87040; 87390; 93005; 96360; 96361; 99285; G0378; J1650; J7030; J7120; Q9967